=== PATIENT | male | born 1970 | race Two or more races ===

== ENCOUNTER 2018-05-17 11:28 | Outpatient (CLI) | payer OTHER | END 2018-05-17 11:36 | disposition home or self-care (01) | LOC: LAB 11:28 | DX: Z11.59 Encounter for screening for other viral diseases (principal); Z12.79 Encounter for screening for malignant neoplasm of other genitourinary organs ==

== ENCOUNTER 2021-04-22 15:30 | Outpatient (CLI) | payer OTHER | END 2021-04-22 15:55 | disposition home or self-care (01) | LOC: PPH VACUNA 15:30 | PROVIDERS: ATTEND Emergency Medicine Pediatric Emergency Medicine | DX: Z23 Encounter for immunization (principal) ==